=== PATIENT | male | born 1995 | race Two or more races ===

== ENCOUNTER 2018-06-11 19:19 | Emergency (ER) | payer MEDICAID ==
[~2018-06-11] VITALS: Ht 172.7 cm; Wt 79.0 kg
[2018-06-11 23:07] VITALS: BP 115/67
== END 2018-06-11 23:50 | disposition home or self-care (01) ==
LOC: ER 19:19
DX: S00.83XA Contusion of other part of head, initial encounter (principal); V49.49XA Driver injured in collision with other motor vehicles in traffic accident, initial encounter; Y93.89 Activity, other specified; Y92.488 Other paved roadways as the place of occurrence of the external cause
CPT/HCPCS: 99284